=== PATIENT | male | born 1965 | race African-American/Black ===

== ENCOUNTER 2017-10-29 04:58 | Emergency (ER) | payer MEDICAID ==
[~2017-10-29] VITALS: Ht 167.6 cm; Wt 82.0 kg
[~2017-10-29 04:58] MED LIST: EMTR1TAB11 PO; FURO80TA3 PO; LISI-604 PO; OXYC30TA89 PO; SPIR25TA4 PO; TIVICAY PO
[2017-10-29 07:53] VITALS: BP 120/68
== END 2017-10-29 07:54 | disposition home or self-care (01) ==
LOC: ER 04:58
DX: B34.9 Viral infection, unspecified (principal); I50.9 Heart failure, unspecified; F12.10 Cannabis abuse, uncomplicated; F14.10 Cocaine abuse, uncomplicated; F15.10 Other stimulant abuse, uncomplicated; F17.210 Nicotine dependence, cigarettes, uncomplicated
CPT/HCPCS: 71045; 87070; 87430; 99285; 99406

== ENCOUNTER 2018-02-18 19:44 | Emergency (ER) | payer MEDICAID ==
[~2018-02-18] VITALS: Ht 167.6 cm; Wt 76.5 kg
[~2018-02-18 19:44] MED LIST changes: -SPIR25TA4 PO; +SPIR25TA6 PO
[2018-02-18 22:09] LABS: BASOPHILS % 1.1 % (0.0-2.0); CHLORIDE 101 mEq/L (98-107); EOSINOPHILS % 0.3 % (0.0-5.0); HEMATOCRIT. 48.1 % (42.0-52.0); HEMOGLOBIN. 15.7 g/dL (14.0-18.0); LYMPHOCYTES % 33.9 % (20.0-50.0); MEAN CORPUSCULAR HEMOGLOBIN 27.1 pg (28.0-32.0); MEAN CORPUSCULAR VOLUME 83.3 fL (80.0-94.0); MEAN PLATELET VOLUME 9.3 fl (7.4-10.4); MONOCYTES % 12.8 % (2.0-8.0); NEUTROPHILS % 51.9 % (40.0-76.0); PLATELET 160 x1000/uL (130-400); RED BLOOD CELL COUNT 5.77 mill/uL (4.7-6.1)
[2018-02-18 22:11] LABS: PARTIAL THROMBOPLASTIN TIME 26.4 sec (23.4-31.0); PROTHROMBIN TIME 10.4 sec (9.4-11.6)
[2018-02-18] MEDS ORDERED: SODIUM CHLORIDE 0.9% 1,000 ML IV ONE (23:07)
[2018-02-19 01:30] VITALS: BP 107/70
== END 2018-02-19 01:33 | disposition left against medical advice (07) ==
LOC: ER 19:44 → CANBEDREQ 02-19 01:59
DX: R19.7 Diarrhea, unspecified (principal); N28.9 Disorder of kidney and ureter, unspecified; R73.9 Hyperglycemia, unspecified; F15.10 Other stimulant abuse, uncomplicated; F17.210 Nicotine dependence, cigarettes, uncomplicated; Z79.899 Other long term (current) drug therapy
CPT/HCPCS: 36415; 71045; 80053; 83690; 84484; 85025; 85610; 85730; 93005; 96360; 96361; 99285; J7030; Z7610

== ENCOUNTER 2019-05-22 02:00 | Emergency (ER) | payer MEDICAID ==
[~2019-05-22] VITALS: Ht 170.2 cm; Wt 91.0 kg
[2019-05-22] MEDS ORDERED: MORPHINE SULFATE 4 MG/ML CPJ (NOT FOR IM USE) IV ONE (03:30)
[2019-05-22] MEDS ORDERED: ONDANSETRON HCL 4MG/2ML INJ IV ONE (03:30)
[2019-05-22 03:31] LABS: CLARITY URINE CLOUDY (CLEAR); COLOR URINE YELLOW (YELLOW); KETONES URINE NEGATIVE (NEGATIVE); LEUKOCYTE ESTERASE URINE 3+ (NEGATIVE); NITRITE URINE POSITIVE (NEGATIVE); OCCULT BLOOD URINE 2+ (NEGATIVE); PROTEIN URINE 2+ (NEGATIVE); SPECIFIC GRAVITY URINE 1.013 (1.005-1.030)
[2019-05-22 03:48] LABS: *AMPHETAMINES SCREEN URINE PRESUMTIVE POSITIVE (NEGATIVE)
[2019-05-22 03:49] LABS: *BARBITURATES SCREEN URINE NEGATIVE (NEGATIVE); *BENZODIAZEPINES SCREEN URINE NEGATIVE (NEGATIVE); *COCAINE SCREEN URINE NEGATIVE (NEGATIVE); METHADONE URINE SCREEN NEGATIVE (NEGATIVE); OPIATES URINE SCREEN NEGATIVE (NEGATIVE)
[2019-05-22 03:50] LABS: CANNABINOID URINE SCREEN NEGATIVE (NEGATIVE); PHENCYCLIDINE URINE SCREEN NEGATIVE (NEGATIVE)
[2019-05-22 03:57] LABS: HEMATOCRIT. 37.1 % (42.0-52.0); HEMOGLOBIN. 12.1 g/dL (14.0-18.0); MEAN CORPUSCULAR HEMOGLOBIN 27.5 pg (28.0-32.0); MEAN CORPUSCULAR VOLUME 84.2 fL (80.0-94.0); MEAN PLATELET VOLUME 9.2 fl (7.4-10.4); PLATELET 109 x1000/uL (130-400); RED CELL DISTRIBUTION WIDTH 13.6 % (11.6-14.6)
[2019-05-22 04:03] LABS: CHLORIDE 105 mEq/L (98-107)
[2019-05-22 04:05] LABS: PROTHROMBIN TIME 10.3 sec (9.6-11.0)
[2019-05-22 04:07] LABS: ETHANOL BLOOD < 10 mg/dL
[2019-05-22 04:26] LABS: PLATELET ESTIMATE DECREASED
[2019-05-22] MEDS ORDERED: CEFTRIAXONE 1 G PREMIX 50 ML IV ONE (04:45)
[2019-05-22 05:15] VITALS: BP 115/76
== END 2019-05-22 07:00 | disposition home or self-care (01) ==
LOC: ER 02:29
DX: N39.0 Urinary tract infection, site not specified (principal)
CPT/HCPCS: 36415; 80053; 80305; 80320; 81003; 83690; 85025; 85610; 87077; 87086; 87186; 93005; 96365; 96375; 99284; J0696; J2270; J2405; Z7610; G0480

== ENCOUNTER 2019-07-09 15:24 | Inpatient (IN) | payer MEDICAID ==
[~2019-07-09] VITALS: Ht 167.6 cm; Wt 78.5 kg
[2019-07-09] MEDS ORDERED: FUROSEMIDE 40MG/4ML VIAL IV ONE (17:30)
[2019-07-09] MEDS ORDERED: ASPIRIN 81MG TABLET PO ONE (17:30)
[2019-07-09 17:44] LABS: HEMATOCRIT. 40.4 % (42.0-52.0); HEMOGLOBIN. 13.2 g/dL (14.0-18.0); MEAN CORPUSCULAR HEMOGLOBIN 27.5 pg (28.0-32.0); MEAN CORPUSCULAR VOLUME 83.7 fL (80.0-94.0); MEAN PLATELET VOLUME 9.1 fl (7.4-10.4); PLATELET 135 x1000/uL (130-400); RED BLOOD CELL COUNT 4.82 mill/uL (4.7-6.1); RED CELL DISTRIBUTION WIDTH 14.3 % (11.6-14.6)
[2019-07-09 17:51] LABS: PARTIAL THROMBOPLASTIN TIME 28.7 sec (23.4-31.0); PROTHROMBIN TIME 10.5 sec (9.6-11.0)
[2019-07-09 17:55] LABS: CHLORIDE 106 mEq/L (98-107)
[2019-07-09 17:59] LABS: ETHANOL BLOOD < 10 mg/dL
[2019-07-09 18:52] LABS: PLATELET ESTIMATE NORMAL
[2019-07-09 19:23] LABS: CLARITY URINE CLEAR (CLEAR); COLOR URINE YELLOW (YELLOW); KETONES URINE NEGATIVE (NEGATIVE); LEUKOCYTE ESTERASE URINE NEGATIVE (NEGATIVE); NITRITE URINE NEGATIVE (NEGATIVE); OCCULT BLOOD URINE NEGATIVE (NEGATIVE); PH URINE 7.5 (4.5-8.0); PROTEIN URINE NEGATIVE (NEGATIVE); SPECIFIC GRAVITY URINE 1.006 (1.005-1.030); UROBILINOGEN URINE 0.2 E.U./dL (0.2-1.0)
[2019-07-09 19:42] LABS: *AMPHETAMINES SCREEN URINE PRESUMTIVE POSITIVE (NEGATIVE); *BARBITURATES SCREEN URINE NEGATIVE (NEGATIVE)
[2019-07-09 19:43] LABS: *BENZODIAZEPINES SCREEN URINE NEGATIVE (NEGATIVE); *COCAINE SCREEN URINE NEGATIVE (NEGATIVE); METHADONE URINE SCREEN NEGATIVE (NEGATIVE); OPIATES URINE SCREEN NEGATIVE (NEGATIVE); PHENCYCLIDINE URINE SCREEN NEGATIVE (NEGATIVE)
[2019-07-09 19:44] LABS: CANNABINOID URINE SCREEN NEGATIVE (NEGATIVE)
[2019-07-09] MEDS ORDERED: NA PHOS,M-B/NA PHOS,DI-BA ENEMA 118ML PR PRN (21:30)
[2019-07-09] MEDS ORDERED: LORAZEPAM 2MG/ML CPJ IV PRN (21:30)
[2019-07-09] MEDS ORDERED: DOCUSATE SODIUM 100MG CAPSULE PO PRN (21:30)
[2019-07-09] MEDS ORDERED: HYDROCODONE/ACETAMINOPHEN 10/325MG TABLET PO PRN (21:30)
[2019-07-09] MEDS ORDERED: MAGNESIUM/ALUMINUM HYDROXIDE/SIMETHICONE 30ML UDC PO PRN (21:30)
[2019-07-09] MEDS ORDERED: ONDANSETRON HCL 4MG/2ML INJ IV PRN (21:30)
[2019-07-09] MEDS ORDERED: CLONIDINE 0.1MG TABLET PO PRN (21:30)
[2019-07-09] MEDS ORDERED: DIPHENHYDRAMINE 50MG/ML VIAL IV PRN (21:30)
[2019-07-09] MEDS ORDERED: ACETAMINOPHEN 325MG TABLET PO PRN (21:30)
[2019-07-09] MEDS ORDERED: IPRATROPIUM/ALBUTEROL 0.5-3(2.5)MG/3ML NEB NEB PRN (21:30)
[2019-07-09 21:49] LABS: CHLORIDE 104 mEq/L (98-107)
[2019-07-09 22:46] VITALS: BP 121/83
[2019-07-09 23:30] VITALS: BP 110/78
[2019-07-09] MEDS: METHYLPREDNISOLONE SOD SUCC 125 MG/2 ML VIAL IV SCH (23:35)
[2019-07-09] MEDS: LEVOFLOXACIN 500MG PREMIX 100 ML IV SCH (23:36)
[2019-07-09] MEDS: MORPHINE SULFATE 2 MG/ML CPJ (NOT FOR IM USE) IV PRN (23:49)
[2019-07-10] VITALS: BP 105/70
[2019-07-10] MEDS ORDERED: CARV6.2548 PO (01:05)
[2019-07-10] MEDS ORDERED: BUME2TAB7 PO (01:05)
[2019-07-10] MEDS ORDERED: ATOR10TA69 PO (01:05)
[2019-07-10 04:00] VITALS: BP 101/67
[2019-07-10] MEDS: METHYLPREDNISOLONE SOD SUCC 125 MG/2 ML VIAL IV SCH ×2 (04:31→09:50)
[2019-07-10 07:32] LABS: CHLORIDE 103 mEq/L (98-107)
[2019-07-10 07:38] LABS: HEMATOCRIT. 40.5 % (42.0-52.0); HEMOGLOBIN. 13.2 g/dL (14.0-18.0); MEAN CORPUSCULAR HEMOGLOBIN 27.4 pg (28.0-32.0); MEAN CORPUSCULAR VOLUME 84.4 fL (80.0-94.0); MEAN PLATELET VOLUME 9.9 fl (7.4-10.4); PLATELET 123 x1000/uL (130-400); RED CELL DISTRIBUTION WIDTH 14.6 % (11.6-14.6)
[2019-07-10 07:54] LABS: LDL CHOLESTEROL 55 mg/dL (5-100)
[2019-07-10 07:55] LABS: HDL CHOLESTEROL 56 mg/dL (40-59)
[2019-07-10 08:00] VITALS: BP 114/62
[2019-07-10] MEDS ORDERED: SPIRONOLACTONE 5MG/ML 1ML ORAL SYR(NEO) PO SCH (09:30)
[2019-07-10] MEDS ORDERED: CARVEDILOL 6.25 MG TABLET PO SCH (09:30)
[2019-07-10] MEDS ORDERED: MEDICATION NOT ON FORMULARY EA (Emtricitabine/Tenofovir (Truvada 200 Mg-300 Mg Tablet) 1 PO SCH (09:30)
[2019-07-10] MEDS ORDERED: TIVICAY 50 MG PO SCH (09:30)
[2019-07-10] MEDS: LISINOPRIL 20MG TABLET PO SCH (09:30)
[2019-07-10] MEDS: ATORVASTATIN CALCIUM 10MG TABLET PO SCH (09:51)
[2019-07-10] MEDS: FUROSEMIDE 40MG/4ML VIAL IV SCH (09:51)
[2019-07-10] MEDS: ASPIRIN 81MG EC TABLET PO SCH (09:51)
[2019-07-10] MEDS: NICOTINE 21MG PATCH TD SCH (09:52)
[2019-07-10] MEDS: ENOXAPARIN 40MG/0.4ML SYR SUBCUT SCH (09:53)
[2019-07-10] MEDS: MORPHINE SULFATE 2 MG/ML CPJ (NOT FOR IM USE) IV PRN ×2 (09:53→20:54)
[2019-07-10] MEDS: SPIRONOLACTONE 25MG TABLET PO SCH (11:25)
[2019-07-10 12:00] VITALS: BP 117/87
[2019-07-10] MEDS ORDERED: INFLUENZA VIRUS VACCINE(AFLURIA) 0.5ML SYR IM ONE (12:00)
[2019-07-10] MEDS ORDERED: PNEUMOCOCCAL 23-VAL P-SAC VAC 0.5 ML IM ONE (12:00)
[2019-07-10 12:24] LABS: PLATELET ESTIMATE SLIGHTLY DECREASED
[2019-07-10 16:00] VITALS: BP 121/82
[2019-07-10] MEDS ORDERED: AZITHROMYCIN 600 MG TABLET PO SCH (16:00)
[2019-07-10] MEDS: SULFAMETHOXAZOLE/TRIMETHOPRIM 800/160MG TABLET PO SCH (17:13)
[2019-07-10 20:00] VITALS: BP 131/76
[2019-07-10] MEDS: FLUTICASONE PROPIONATE 50MCG/SPRAY BOTTLE BOTHNSTRLS SCH (20:48)
[2019-07-10] MEDS: IPRATROPIUM/ALBUTEROL 0.5-3(2.5)MG/3ML NEB HHN SCH (21:13)
[2019-07-10] MEDS ORDERED: NITR1PAT59 TP (22:09)
[2019-07-10] MEDS: LEVOFLOXACIN 500MG PREMIX 100 ML IV SCH (23:40)
[2019-07-11] VITALS: BP 122/83
[2019-07-11] MEDS ORDERED: NITROGLYCERIN 0.4MG/HR PATCH TOP SCH
[2019-07-11] MEDS: IPRATROPIUM/ALBUTEROL 0.5-3(2.5)MG/3ML NEB HHN SCH ×4 (01:18→20:10)
[2019-07-11 04:00] VITALS: BP 108/58
[2019-07-11 07:06] LABS: BASOPHILS % 0.1 % (0.0-2.0); EOSINOPHILS % 0.1 % (0.0-5.0); HEMATOCRIT. 37.5 % (42.0-52.0); HEMOGLOBIN. 12.1 g/dL (14.0-18.0); LYMPHOCYTES % 34.6 % (20.0-50.0); MEAN CORPUSCULAR HEMOGLOBIN 27.2 pg (28.0-32.0); MEAN CORPUSCULAR VOLUME 84.5 fL (80.0-94.0); MONOCYTES % 14.5 % (2.0-8.0); NEUTROPHILS % 50.7 % (40.0-76.0); PLATELET 125 x1000/uL (130-400); RED BLOOD CELL COUNT 4.44 mill/uL (4.7-6.1); RED CELL DISTRIBUTION WIDTH 14.1 % (11.6-14.6)
[2019-07-11 07:33] LABS: CHLORIDE 103 mEq/L (98-107)
[2019-07-11 08:00] VITALS: BP 100/69
[2019-07-11] MEDS: LISINOPRIL 20MG TABLET PO SCH (08:37)
[2019-07-11] MEDS: FLUTICASONE PROPIONATE 50MCG/SPRAY BOTTLE BOTHNSTRLS SCH ×2 (08:45→21:03)
[2019-07-11] MEDS: FUROSEMIDE 40MG/4ML VIAL IV SCH (08:47)
[2019-07-11] MEDS: NICOTINE 21MG PATCH TD SCH (08:47)
[2019-07-11] MEDS: ENOXAPARIN 40MG/0.4ML SYR SUBCUT SCH (08:47)
[2019-07-11] MEDS: ATORVASTATIN CALCIUM 10MG TABLET PO SCH (08:48)
[2019-07-11] MEDS: SULFAMETHOXAZOLE/TRIMETHOPRIM 800/160MG TABLET PO SCH (08:48)
[2019-07-11] MEDS: SPIRONOLACTONE 25MG TABLET PO SCH (08:48)
[2019-07-11] MEDS: ASPIRIN 81MG EC TABLET PO SCH (08:48)
[2019-07-11 12:00] VITALS: BP 123/68
[2019-07-11 16:00] VITALS: BP 100/65
[2019-07-11] MEDS: GUAIFENESIN 200MG/10ML SUGAR FREE UDC PO PRN (17:24)
[2019-07-11 20:00] VITALS: BP 99/41
[2019-07-11] MEDS ORDERED: LEVOFLOXACIN 500MG PREMIX 100 ML IV SCH (22:00)
[2019-07-12] VITALS: BP 100/66
[2019-07-12] MEDS: GUAIFENESIN 200MG/10ML SUGAR FREE UDC PO PRN (01:16)
[2019-07-12] MEDS: IPRATROPIUM/ALBUTEROL 0.5-3(2.5)MG/3ML NEB HHN SCH ×2 (01:52→09:14)
[2019-07-12 04:00] VITALS: BP 106/67
[2019-07-12 08:00] VITALS: BP 111/87
[2019-07-12] MEDS: ATORVASTATIN CALCIUM 10MG TABLET PO SCH (08:42)
[2019-07-12] MEDS: SULFAMETHOXAZOLE/TRIMETHOPRIM 800/160MG TABLET PO SCH (08:42)
[2019-07-12] MEDS: ASPIRIN 81MG EC TABLET PO SCH (08:42)
[2019-07-12] MEDS: SPIRONOLACTONE 25MG TABLET PO SCH (08:43)
[2019-07-12] MEDS: FLUTICASONE PROPIONATE 50MCG/SPRAY BOTTLE BOTHNSTRLS SCH (08:43)
[2019-07-12] MEDS: ENOXAPARIN 40MG/0.4ML SYR SUBCUT SCH (08:44)
[2019-07-12] MEDS: LISINOPRIL 20MG TABLET PO SCH (08:44)
[2019-07-12] MEDS: NICOTINE 21MG PATCH TD SCH (08:44)
[2019-07-12] MEDS: FUROSEMIDE 40MG/4ML VIAL IV SCH (08:45)
[2019-07-12 09:10] LABS: ABSOLUTE LYMPHOCYTES 1.1 x10E3/uL (0.7-3.1); ABSOLUTE MONOCYTES 0.2 x10E3/uL (0.1-0.9); ABSOLUTE NEUTROPHILS 1.4 x10E3/uL (1.4-7.0); BASOPHILS 0 % (Not Estab.); HEMATOCRIT 39.1 % (37.5-51.0); HEMOGLOBIN 12.4 g/dL (13.0-17.7); IMMATURE GRANULOCYTES 0 % (Not Estab.); LYMPHOCYTES 42 % (Not Estab.); MEAN CORPUSCULAR HEMOGLOBIN 27.7 pg (26.6-33.0); MEAN CORPUSCULAR HGB CONC. 31.7 g/dL (31.5-35.7); MEAN CORPUSCULAR VOLUME 87 fL (79-97); MONOCYTES 6 % (Not Estab.); NEUTROPHILS 51 % (Not Estab.); PLATELETS 134 x10E3/uL (150-450); RBC 4.48 x10E6/uL (4.14-5.80); RED CELL DISTRIBUTION WIDTH 14.5 % (12.3-15.4); WBC 2.7 x10E3/uL (3.4-10.8)
[2019-07-12 12:00] VITALS: BP 118/86
[2019-07-12 13:10] LABS: % CD 3 POS. LYMPHOCYTES 73.5 % (57.5-86.2); % CD 4 POS. LYMPHOCYTES 6.1 % (30.8-58.5); ABSOLUTE CD 3 809 /uL (622-2402); ABSOLUTE CD 4 HELPER 67 /uL (359-1519); ABSOLUTE CD 8 SUPPRESSOR 726 /uL (109-897); CD4/CD8 RATIO 0.09 (0.92-3.72)
[2019-07-12 14:08] VITALS: BP 118/86
== END 2019-07-12 14:29 | disposition home or self-care (01) | DRG 133 ==
LOC: ER 15:24 → 8WST 20:07 → EDBEDREQTM 20:13 → EDBEDREQ 20:13 → ENRESERV 20:46
PROVIDERS: ADMIT Internal Medicine; ATTEND Internal Medicine
DX: J96.00 Acute respiratory failure, unspecified whether with hypoxia or hypercapnia (principal); I50.23 Acute on chronic systolic (congestive) heart failure; E87.2 Acidosis; E46 Unspecified protein-calorie malnutrition; D69.6 Thrombocytopenia, unspecified; G62.9 Polyneuropathy, unspecified; I27.21 Secondary pulmonary arterial hypertension; R65.10 Systemic inflammatory response syndrome (SIRS) of non-infectious origin without acute organ dysfunction; I11.0 Hypertensive heart disease with heart failure; J44.9 Chronic obstructive pulmonary disease, unspecified; F15.10 Other stimulant abuse, uncomplicated; B19.20 Unspecified viral hepatitis C without hepatic coma; D72.819 Decreased white blood cell count, unspecified; F17.210 Nicotine dependence, cigarettes, uncomplicated; I42.9 Cardiomyopathy, unspecified; J00 Acute nasopharyngitis [common cold]; Z82.49 Family history of ischemic heart disease and other diseases of the circulatory system; Z86.73 Personal history of transient ischemic attack (TIA), and cerebral infarction without residual deficits; Z91.19 Patient's noncompliance with other medical treatment and regimen; Z71.6 Tobacco abuse counseling; Z71.51 Drug abuse counseling and surveillance of drug abuser; Z68.27 Body mass index [BMI] 27.0-27.9, adult
CPT/HCPCS: 36415; 71045; 80048; 80061; 80305; 80320; 81003; 83605; 83735; 83880; 84439; 84443; 84484; 86359; 86360; 87804; 90686; 90732; 93005; 93306; 94640; 97162; 99285; J1650; J1940; J1956; J2270; J2930; J7620; G0480

== ENCOUNTER 2019-12-13 09:54 | Emergency (ER) | payer MEDICAID ==
[~2019-12-13] VITALS: Ht 167.6 cm; Wt 70.3 kg
[~2019-12-13 09:54] MED LIST changes: +ATOR10TA69 PO; +BUME2TAB7 PO; +CARV6.2548 PO; -EMTR1TAB11 PO; +NITR1PAT59 TP; -TIVICAY PO
[2019-12-13 10:00] VITALS: BP 140/78
[2019-12-13 11:06] LABS: CLARITY URINE CLOUDY (CLEAR); COLOR URINE DARK YELLOW (YELLOW); KETONES URINE TRACE (NEGATIVE); LEUKOCYTE ESTERASE URINE 1+ (NEGATIVE); NITRITE URINE NEGATIVE (NEGATIVE); OCCULT BLOOD URINE TRACE (NEGATIVE); PH URINE 5.5 (4.5-8.0); PROTEIN URINE 1+ (NEGATIVE); SPECIFIC GRAVITY URINE 1.027 (1.005-1.030)
[2019-12-13] MEDS ORDERED: LIDOCAINE HCL 1% 20ML VIAL (Pyxis) INJ INFIL ONE (11:15)
[2019-12-13] MEDS ORDERED: CEFTRIAXONE SODIUM 1 G/VIAL IM ONE (11:15)
== END 2019-12-13 12:04 | disposition home or self-care (01) ==
LOC: ER 09:54
DX: N39.0 Urinary tract infection, site not specified (principal); I11.0 Hypertensive heart disease with heart failure; I50.9 Heart failure, unspecified; J44.9 Chronic obstructive pulmonary disease, unspecified; Z79.899 Other long term (current) drug therapy; Z20.828 Contact with and (suspected) exposure to other viral communicable diseases
CPT/HCPCS: 74176; 81003; 87086; 87635; 96372; 99284; J0696; J3490

== ENCOUNTER 2020-09-18 03:54 | Inpatient (IN) | payer MEDICAID ==
[~2020-09-18] VITALS: Ht 167.6 cm; Wt 78.5 kg
[~2020-09-18 03:54] MED LIST changes: +OXYC-582 PO; -OXYC30TA89 PO
[2020-09-18] MEDS ORDERED: ASPIRIN 81MG TABLET PO ONE (04:15)
[2020-09-18] MEDS: NITROGLYCERIN 0.4MG TABLET SL SL PRN (04:31)
[2020-09-18 04:51] LABS: BASOPHILS % 1.1 % (0.0-2.0); EOSINOPHILS % 0.6 % (0.0-5.0); HEMATOCRIT. 36.6 % (42.0-52.0); HEMOGLOBIN. 11.9 g/dL (14.0-18.0); LYMPHOCYTES % 53.9 % (20.0-50.0); MEAN CORPUSCULAR HEMOGLOBIN 27.7 pg (28.0-32.0); MEAN CORPUSCULAR VOLUME 85.1 fL (80.0-94.0); MONOCYTES % 12.8 % (2.0-8.0); NEUTROPHILS % 31.6 % (40.0-76.0); PLATELET 104 x1000/uL (130-400); RED CELL DISTRIBUTION WIDTH 14.9 % (11.6-14.6)
[2020-09-18 05:10] LABS: CHLORIDE 106 mEq/L (98-107)
[2020-09-18 05:20] LABS: ETHANOL BLOOD < 10 mg/dL
[2020-09-18] MEDS ORDERED: AZITHROMYCIN 500 MG in DEXT 5% WATER 250 ML IV ONE (06:30)
[2020-09-18] MEDS ORDERED: CEFTRIAXONE 1 G PREMIX 50 ML IV ONE (06:30)
[2020-09-18] MEDS ORDERED: FUROSEMIDE 20MG/2ML VIAL IVP ONE (06:30)
[2020-09-18 10:47] LABS: CLARITY URINE CLEAR (CLEAR); COLOR URINE YELLOW (YELLOW); KETONES URINE NEGATIVE (NEGATIVE); LEUKOCYTE ESTERASE URINE NEGATIVE (NEGATIVE); NITRITE URINE NEGATIVE (NEGATIVE); OCCULT BLOOD URINE NEGATIVE (NEGATIVE); PH URINE 7.5 (4.5-8.0); PROTEIN URINE NEGATIVE (NEGATIVE); SPECIFIC GRAVITY URINE 1.008 (1.005-1.030)
[2020-09-18 11:06] LABS: *AMPHETAMINES SCREEN URINE PRESUMTIVE POSITIVE (NEGATIVE); *BARBITURATES SCREEN URINE NEGATIVE (NEGATIVE); *BENZODIAZEPINES SCREEN URINE NEGATIVE (NEGATIVE); *COCAINE SCREEN URINE NEGATIVE (NEGATIVE); METHADONE URINE SCREEN NEGATIVE (NEGATIVE); OPIATES URINE SCREEN NEGATIVE (NEGATIVE)
[2020-09-18 11:07] LABS: CANNABINOID URINE SCREEN NEGATIVE (NEGATIVE); PHENCYCLIDINE URINE SCREEN NEGATIVE (NEGATIVE)
[2020-09-18] MEDS ORDERED: MORPHINE SULFATE 2 MG/ML CPJ (NOT FOR IM USE) IV PRN (12:00)
[2020-09-18] MEDS: ENOXAPARIN 40MG/0.4ML SYR SUBCUT SCH (18:00)
[2020-09-18] MEDS ORDERED: ONDANSETRON HCL 4MG/2ML INJ IV PRN (18:00)
[2020-09-18] MEDS ORDERED: ACETAMINOPHEN 325MG TABLET PO PRN (18:00)
[2020-09-18] MEDS ORDERED: IPRATROPIUM/ALBUTEROL 0.5-3(2.5)MG/3ML NEB NEB PRN (18:00)
[2020-09-18] MEDS: FUROSEMIDE 40MG TABLET PO SCH ×2 (18:32→23:00)
[2020-09-18] MEDS: CARVEDILOL 6.25 MG TABLET PO SCH (20:48)
[2020-09-19] MEDS: NITROGLYCERIN 0.4MG TABLET SL SL PRN ×2 (00:12→10:40)
[2020-09-19 01:00] LABS: CREATINE KINASE 77 IU/L (39-308)
[2020-09-19 01:01] LABS: CREATINE KINASE MB FRACTION 1.6 ng/mL (0.5-3.6)
[2020-09-19 06:50] LABS: CHLORIDE 101 mEq/L (98-107)
[2020-09-19 06:56] LABS: CREATINE KINASE 81 IU/L (39-308); HEMATOCRIT. 38.6 % (42.0-52.0); HEMOGLOBIN. 12.8 g/dL (14.0-18.0); MEAN CORPUSCULAR HEMOGLOBIN 27.8 pg (28.0-32.0); MEAN CORPUSCULAR VOLUME 83.9 fL (80.0-94.0); MEAN PLATELET VOLUME 9.3 fl (7.4-10.4); PLATELET 134 x1000/uL (130-400); RED CELL DISTRIBUTION WIDTH 14.3 % (11.6-14.6)
[2020-09-19 06:58] LABS: CREATINE KINASE MB FRACTION 1.7 ng/mL (0.5-3.6)
[2020-09-19 08:00] VITALS: BP 117/82
[2020-09-19] MEDS ORDERED: SULF-288 PO (09:49)
[2020-09-19] MEDS ORDERED: ERGO500013 PO (09:51)
[2020-09-19] MEDS ORDERED: ASPI-1497 PO (09:51)
[2020-09-19] MEDS: SPIRONOLACTONE 25MG TABLET PO SCH (10:26)
[2020-09-19] MEDS: LISINOPRIL 20MG TABLET PO SCH (10:27)
[2020-09-19] MEDS: CARVEDILOL 6.25 MG TABLET PO SCH ×2 (10:28→21:00)
[2020-09-19] MEDS: ASPIRIN 81MG EC TABLET PO SCH (10:28)
[2020-09-19 10:35] LABS: PLATELET ESTIMATE NORMAL
[2020-09-19 10:59] VITALS: BP 117/82
[2020-09-19 12:00] VITALS: BP 120/68
[2020-09-19] MEDS ORDERED: *PATIENT'S OWN MEDICATION STORAGE XX SCH (13:00)
[2020-09-19 16:00] VITALS: BP 101/56
[2020-09-19] MEDS: FUROSEMIDE 40MG TABLET PO SCH (17:12)
[2020-09-19] MEDS: ENOXAPARIN 40MG/0.4ML SYR SUBCUT SCH (17:14)
[2020-09-19] MEDS: FUROSEMIDE 40MG/4ML VIAL IVP SCH ×2 (18:00→20:17)
[2020-09-19] MEDS ORDERED: CEFTRIAXONE 1 G PREMIX 50 ML IV SCH (18:00)
[2020-09-19] MEDS ORDERED: PNEUMOCOCCAL 23-VAL P-SAC VAC 0.5 ML IM ONE (19:00)
[2020-09-19] MEDS ORDERED: INFLUENZA VACCINE 05/PF 0.5 ML VIAL IM ONE (19:00)
[2020-09-19] MEDS: AZITHROMYCIN 500 MG in DEXT 5% WATER 250 ML IV SCH (19:54)
[2020-09-19 20:00] VITALS: BP 101/70
[2020-09-19] MEDS: CEFTRIAXONE 1,000 MG in DEXTROSE 5% WATER 50 ML IV SCH (22:00)
[2020-09-20] VITALS: BP 104/62
[2020-09-20 04:00] VITALS: BP 112/77
[2020-09-20 06:46] LABS: HEMATOCRIT. 41.5 % (42.0-52.0); HEMOGLOBIN. 13.9 g/dL (14.0-18.0); MEAN CORPUSCULAR HEMOGLOBIN 28.2 pg (28.0-32.0); MEAN CORPUSCULAR VOLUME 84.2 fL (80.0-94.0); MEAN PLATELET VOLUME 9.1 fl (7.4-10.4); PLATELET 137 x1000/uL (130-400); RED BLOOD CELL COUNT 4.94 mill/uL (4.7-6.1); RED CELL DISTRIBUTION WIDTH 14.5 % (11.6-14.6)
[2020-09-20 07:13] LABS: CHLORIDE 102 mEq/L (98-107)
[2020-09-20 08:00] VITALS: BP 120/81
[2020-09-20] MEDS: SPIRONOLACTONE 25MG TABLET PO SCH (08:52)
[2020-09-20] MEDS: CARVEDILOL 6.25 MG TABLET PO SCH ×2 (08:52→20:12)
[2020-09-20] MEDS: LISINOPRIL 20MG TABLET PO SCH (08:52)
[2020-09-20] MEDS: ASPIRIN 81MG EC TABLET PO SCH (08:52)
[2020-09-20] MEDS: FUROSEMIDE 40MG/4ML VIAL IVP SCH ×2 (08:52→18:12)
[2020-09-20] MEDS ORDERED: MORPHINE SULFATE 2 MG/ML CPJ (NOT FOR IM USE) IV PRN (11:00)
[2020-09-20 12:00] VITALS: BP 115/86
[2020-09-20 16:00] VITALS: BP 134/48
[2020-09-20 16:34] LABS: PLATELET ESTIMATE NORMAL
[2020-09-20] MEDS: ENOXAPARIN 40MG/0.4ML SYR SUBCUT SCH (18:12)
[2020-09-20] MEDS: AZITHROMYCIN 500 MG in DEXT 5% WATER 250 ML IV SCH ×2 (19:30→20:14)
[2020-09-20 20:00] VITALS: BP 135/86
[2020-09-20] MEDS: CEFTRIAXONE 1,000 MG in DEXTROSE 5% WATER 50 ML IV SCH (20:12)
[2020-09-21] VITALS: BP 108/62
[2020-09-21 04:00] VITALS: BP 125/78
[2020-09-21 04:31] LABS: CHLORIDE 104 mEq/L (98-107)
[2020-09-21 04:50] LABS: HEMATOCRIT. 40.6 % (42.0-52.0); HEMOGLOBIN. 13.3 g/dL (14.0-18.0); MEAN CORPUSCULAR HEMOGLOBIN 27.7 pg (28.0-32.0); MEAN CORPUSCULAR VOLUME 84.3 fL (80.0-94.0); MEAN PLATELET VOLUME 9.5 fl (7.4-10.4); PLATELET 145 x1000/uL (130-400); RED BLOOD CELL COUNT 4.82 mill/uL (4.7-6.1); RED CELL DISTRIBUTION WIDTH 14.7 % (11.6-14.6)
[2020-09-21 08:00] VITALS: BP 124/83
[2020-09-21] MEDS: SPIRONOLACTONE 25MG TABLET PO SCH (09:08)
[2020-09-21] MEDS: FUROSEMIDE 40MG/4ML VIAL IVP SCH (09:08)
[2020-09-21] MEDS: LISINOPRIL 20MG TABLET PO SCH (09:08)
[2020-09-21] MEDS: ASPIRIN 81MG EC TABLET PO SCH (09:08)
[2020-09-21] MEDS: CARVEDILOL 6.25 MG TABLET PO SCH (09:09)
[2020-09-21 10:00] VITALS: BP 111/70
[2020-09-21 12:00] VITALS: BP 143/78
[2020-09-21] MEDS ORDERED: ASPI-1406 PO (12:34)
[2020-09-21] MEDS ORDERED: SPIR25TA PO (12:34)
[2020-09-21] MEDS ORDERED: FURO-151 MT (12:34)
[2020-09-21] MEDS ORDERED: COR6 PO (12:34)
[2020-09-21 14:14] VITALS: BP 98/69
[2020-09-21 18:08] LABS: PLATELET ESTIMATE NORMAL
== END 2020-09-21 15:10 | disposition home or self-care (01) | DRG 139 ==
LOC: ER 03:54 → 5EST 06:34 → EDBEDREQTM 06:36 → EDBEDREQ 06:36 → ENRESERV 09-19 07:29 → 5WST 09-19 12:19 → 5EST 09-19 14:43
PROVIDERS: ADMIT Internal Medicine; ATTEND Internal Medicine
DX: J18.9 Pneumonia, unspecified organism (principal); I11.0 Hypertensive heart disease with heart failure; J44.0 Chronic obstructive pulmonary disease with (acute) lower respiratory infection; I50.23 Acute on chronic systolic (congestive) heart failure; R07.9 Chest pain, unspecified; I42.0 Dilated cardiomyopathy; E78.5 Hyperlipidemia, unspecified; F64.9 Gender identity disorder, unspecified; D69.59 Other secondary thrombocytopenia; F17.200 Nicotine dependence, unspecified, uncomplicated; Z79.82 Long term (current) use of aspirin; Z79.899 Other long term (current) drug therapy; Z82.49 Family history of ischemic heart disease and other diseases of the circulatory system; Z21 Asymptomatic human immunodeficiency virus [HIV] infection status
CPT/HCPCS: 36415; 71045; 80048; 80053; 80305; 80320; 81003; 82550; 82553; 83605; 83880; 84484; 85025; 90686; 90732; 93005; 93306; 93970; 99291; C1893; J0456; J0696; J1650; J1940; J2270; J7040; J7060; G0480

== ENCOUNTER 2020-10-19 15:51 | Emergency (ER) | payer MEDICAID ==
[~2020-10-19 15:51] MED LIST changes: +ASPI-1406 PO; +ASPI-1497 PO; -BUME2TAB7 PO; +COR6 PO; +ERGO500013 PO; +FURO-151 MT; -NITR1PAT59 TP; -OXYC-582 PO; +SPIR25TA PO; -SPIR25TA6 PO; +SULF-288 PO
== END 2020-10-19 16:25 | disposition left against medical advice (07) ==
LOC: ER 15:51
DX: Z53.21 Procedure and treatment not carried out due to patient leaving prior to being seen by health care provider (principal)

== ENCOUNTER 2020-10-19 19:18 | Inpatient (IN) | payer MEDICAID ==
[~2020-10-19] VITALS: Ht 167.6 cm; Wt 82.1 kg
[~2020-10-19 19:18] MED LIST changes: -LISI-604 PO; +LISI20TA31 PO
[2020-10-19 21:01] LABS: HEMATOCRIT. 40.1 % (42.0-52.0); HEMOGLOBIN. 12.8 g/dL (14.0-18.0); MEAN CORPUSCULAR HEMOGLOBIN 26.9 pg (28.0-32.0); MEAN CORPUSCULAR VOLUME 84.4 fL (80.0-94.0); MEAN PLATELET VOLUME 8.7 fl (7.4-10.4); PLATELET 134 x1000/uL (130-400); RED BLOOD CELL COUNT 4.75 mill/uL (4.7-6.1); RED CELL DISTRIBUTION WIDTH 14.3 % (11.6-14.6)
[2020-10-19 21:09] LABS: CHLORIDE 107 mEq/L (98-107)
[2020-10-19 21:16] LABS: PLATELET ESTIMATE NORMAL
[2020-10-19] MEDS ORDERED: FUROSEMIDE 40MG TABLET PO ONE (22:30)
[2020-10-19] MEDS ORDERED: ASPIRIN 81MG TABLET PO ONE (22:30)
[2020-10-20] MEDS ORDERED: ONDANSETRON HCL 4MG/2ML INJ IV PRN (08:30)
[2020-10-20] MEDS ORDERED: HYDRALAZINE 20MG/ML VIAL IV PRN (08:30)
[2020-10-20] MEDS ORDERED: MORPHINE SULFATE 2 MG/ML CPJ (NOT FOR IM USE) IV PRN (08:30)
[2020-10-20] MEDS ORDERED: DOCUSATE SODIUM 100MG CAPSULE PO PRN (08:30)
[2020-10-20] MEDS ORDERED: LORAZEPAM 2MG/ML CPJ IV PRN (08:30)
[2020-10-20] MEDS ORDERED: CLONIDINE 0.1MG TABLET PO PRN (08:30)
[2020-10-20] MEDS ORDERED: MAGNESIUM/ALUMINUM HYDROXIDE/SIMETHICONE 30ML UDC PO PRN (08:30)
[2020-10-20] MEDS ORDERED: IPRATROPIUM/ALBUTEROL 0.5-3(2.5)MG/3ML NEB HHN PRN (08:30)
[2020-10-20] MEDS ORDERED: GUAIFENESIN 200MG/10ML SUGAR FREE UDC PO PRN (08:30)
[2020-10-20 08:35] VITALS: BP 121/80
[2020-10-20] MEDS: FUROSEMIDE 40MG/4ML VIAL IVP SCH (09:33)
[2020-10-20] MEDS: ENOXAPARIN 40MG/0.4ML SYR SUBCUT SCH (09:33)
[2020-10-20 12:00] VITALS: BP 110/70
[2020-10-20] MEDS: SODIUM CHLORIDE 0.9% INJ 3ML FLUSH IVF SCH ×2 (14:00→21:49)
[2020-10-20 15:33] LABS: CREATINE KINASE 77 IU/L (39-308)
[2020-10-20 15:34] LABS: CREATINE KINASE MB FRACTION 1.5 ng/mL (0.5-3.6)
[2020-10-20 16:00] VITALS: BP 110/70
[2020-10-20 18:56] LABS: CLARITY URINE CLEAR (CLEAR); COLOR URINE YELLOW (YELLOW); KETONES URINE NEGATIVE (NEGATIVE); LEUKOCYTE ESTERASE URINE NEGATIVE (NEGATIVE); NITRITE URINE NEGATIVE (NEGATIVE); OCCULT BLOOD URINE NEGATIVE (NEGATIVE); PROTEIN URINE 2+ (NEGATIVE); SPECIFIC GRAVITY URINE 1.019 (1.005-1.030)
[2020-10-20 19:05] LABS: *AMPHETAMINES SCREEN URINE PRESUMTIVE POSITIVE (NEGATIVE); *BARBITURATES SCREEN URINE NEGATIVE (NEGATIVE); *BENZODIAZEPINES SCREEN URINE NEGATIVE (NEGATIVE); *COCAINE SCREEN URINE NEGATIVE (NEGATIVE); CANNABINOID URINE SCREEN NEGATIVE (NEGATIVE); METHADONE URINE SCREEN NEGATIVE (NEGATIVE); OPIATES URINE SCREEN NEGATIVE (NEGATIVE); PHENCYCLIDINE URINE SCREEN NEGATIVE (NEGATIVE)
[2020-10-20] MEDS: HYDROCODONE/ACETAMINOPHEN 5/325MG TABLET PO PRN (19:14)
[2020-10-20 19:39] VITALS: BP 103/77
[2020-10-21] VITALS (7 sets, daily range): BP systolic 103–148; BP diastolic 62–90
[2020-10-21 00:19] LABS: CREATINE KINASE 74 IU/L (39-308); CREATINE KINASE MB FRACTION 1.3 ng/mL (0.5-3.6)
[2020-10-21] MEDS: HYDROCODONE/ACETAMINOPHEN 5/325MG TABLET PO PRN (05:53)
[2020-10-21] MEDS: SODIUM CHLORIDE 0.9% INJ 3ML FLUSH IVF SCH ×3 (05:54→21:34)
[2020-10-21 06:23] LABS: CHLORIDE 102 mEq/L (98-107)
[2020-10-21 06:29] LABS: HEMOGLOBIN. 13.4 g/dL (14.0-18.0); MEAN CORPUSCULAR HEMOGLOBIN 26.9 pg (28.0-32.0); MEAN CORPUSCULAR VOLUME 84.2 fL (80.0-94.0); MEAN PLATELET VOLUME 8.5 fl (7.4-10.4); PLATELET 135 x1000/uL (130-400); RED BLOOD CELL COUNT 4.99 mill/uL (4.7-6.1); RED CELL DISTRIBUTION WIDTH 14.3 % (11.6-14.6)
[2020-10-21] MEDS: FUROSEMIDE 40MG/4ML VIAL IVP SCH (09:15)
[2020-10-21] MEDS: ENOXAPARIN 40MG/0.4ML SYR SUBCUT SCH (09:15)
[2020-10-21] MEDS: DIPHENHYDRAMINE 50MG/ML VIAL IV PRN ×2 (09:16→22:32)
[2020-10-21 10:16] LABS: PLATELET ESTIMATE NORMAL
[2020-10-22] VITALS: BP 118/72
[2020-10-22 04:00] VITALS: BP 116/67
[2020-10-22] MEDS: ACETAMINOPHEN 325MG TABLET PO PRN ×2 (04:55→11:31)
[2020-10-22] MEDS: SODIUM CHLORIDE 0.9% INJ 3ML FLUSH IVF SCH ×3 (06:38→21:02)
[2020-10-22 08:00] VITALS: BP 106/63
[2020-10-22] MEDS: ENOXAPARIN 40MG/0.4ML SYR SUBCUT SCH (09:40)
[2020-10-22] MEDS: FUROSEMIDE 40MG/4ML VIAL IVP SCH ×2 (09:40→17:14)
[2020-10-22] MEDS: ASPIRIN 81MG TABLET PO SCH (11:32)
[2020-10-22] MEDS: LISINOPRIL 5MG TABLET PO SCH (11:32)
[2020-10-22 12:00] VITALS: BP 114/81
[2020-10-22 16:00] VITALS: BP 117/55
[2020-10-22 20:00] VITALS: BP 114/85
[2020-10-22] MEDS ORDERED: ATORVASTATIN CALCIUM 20MG TABLET PO SCH (21:00)
[2020-10-23] VITALS: BP 92/59
[2020-10-23 04:00] VITALS: BP 100/64
[2020-10-23] MEDS: FUROSEMIDE 40MG/4ML VIAL IVP SCH (06:15)
[2020-10-23] MEDS: SODIUM CHLORIDE 0.9% INJ 3ML FLUSH IVF SCH ×2 (06:15→14:22)
[2020-10-23 07:14] LABS: CHLORIDE 98 mEq/L (98-107)
[2020-10-23 07:17] LABS: HEMATOCRIT. 40.8 % (42.0-52.0); HEMOGLOBIN. 13.2 g/dL (14.0-18.0); MEAN CORPUSCULAR HEMOGLOBIN 26.9 pg (28.0-32.0); MEAN CORPUSCULAR VOLUME 83.5 fL (80.0-94.0); MEAN PLATELET VOLUME 9.4 fl (7.4-10.4); PLATELET 144 x1000/uL (130-400); RED BLOOD CELL COUNT 4.89 mill/uL (4.7-6.1)
[2020-10-23 08:00] VITALS: BP 121/73
[2020-10-23] MEDS: LISINOPRIL 5MG TABLET PO SCH (09:55)
[2020-10-23] MEDS: ASPIRIN 81MG TABLET PO SCH (09:55)
[2020-10-23] MEDS: ENOXAPARIN 40MG/0.4ML SYR SUBCUT SCH (09:55)
[2020-10-23 12:00] VITALS: BP 119/67
[2020-10-23 12:41] LABS: PLATELET ESTIMATE NORMAL
[2020-10-23 14:33] VITALS: BP 102/72
== END 2020-10-23 15:20 | disposition home or self-care (01) | DRG 194 ==
LOC: ER 19:18 → 8WST 23:16 → EDBEDREQTM 23:34 → EDBEDREQ 23:34 → ENRESERV 10-20 07:44
PROVIDERS: ADMIT Internal Medicine; ATTEND Internal Medicine
DX: I11.0 Hypertensive heart disease with heart failure (principal); R65.11 Systemic inflammatory response syndrome (SIRS) of non-infectious origin with acute organ dysfunction; J96.00 Acute respiratory failure, unspecified whether with hypoxia or hypercapnia; B19.20 Unspecified viral hepatitis C without hepatic coma; D72.819 Decreased white blood cell count, unspecified; F15.10 Other stimulant abuse, uncomplicated; J44.9 Chronic obstructive pulmonary disease, unspecified; E78.5 Hyperlipidemia, unspecified; F17.210 Nicotine dependence, cigarettes, uncomplicated; I27.21 Secondary pulmonary arterial hypertension; I42.0 Dilated cardiomyopathy; R50.9 Fever, unspecified; I42.7 Cardiomyopathy due to drug and external agent; T50.905A Adverse effect of unspecified drugs, medicaments and biological substances, initial encounter; R07.9 Chest pain, unspecified; I45.4 Nonspecific intraventricular block; Z79.82 Long term (current) use of aspirin; Z79.899 Other long term (current) drug therapy; Z91.19 Patient's noncompliance with other medical treatment and regimen; Z79.2 Long term (current) use of antibiotics; Y92.89 Other specified places as the place of occurrence of the external cause; I50.33 Acute on chronic diastolic (congestive) heart failure; E44.0 Moderate protein-calorie malnutrition; Z68.29 Body mass index [BMI] 29.0-29.9, adult; R64 Cachexia; Z71.51 Drug abuse counseling and surveillance of drug abuser; Z21 Asymptomatic human immunodeficiency virus [HIV] infection status
CPT/HCPCS: 36415; 71045; 80048; 80053; 80061; 80305; 81003; 82550; 82553; 83880; 84484; 85025; 93005; 93970; 96372; 99291; A6261; J1200; J1650; J1940

== ENCOUNTER 2021-10-24 09:00 | Emergency (ER) | payer MEDICAID, OTHER ==
[~2021-10-24] VITALS: Ht 167.6 cm; Wt 80.0 kg
[~2021-10-24 09:00] MED LIST changes: +ERGO1250 PO; -ERGO500013 PO; +SULF-13 PO; -SULF-288 PO
[2021-10-24] MEDS ORDERED: HYDROCODONE/ACETAMINOPHEN 5/325MG TABLET PO STA (09:49)
[2021-10-24 09:53] LABS: BASOPHILS % 0.1 % (0.0-2.0); EOSINOPHILS % 0.1 % (0.0-5.0); HEMATOCRIT. 35.2 % (42.0-52.0); HEMOGLOBIN. 11.2 g/dL (14.0-18.0); LYMPHOCYTES % 45.8 % (20.0-50.0); MEAN CORPUSCULAR VOLUME 81.2 fL (80.0-94.0); MEAN PLATELET VOLUME 8.4 fl (7.4-10.4); PLATELET 169 x1000/uL (130-400); RED BLOOD CELL COUNT 4.33 mill/uL (4.7-6.1); RED CELL DISTRIBUTION WIDTH 14.4 % (11.6-14.6)
[2021-10-24 09:56] LABS: CHLORIDE 99 mEq/L (98-107)
[2021-10-24] MEDS ORDERED: NITROGLYCERIN 0.4MG TABLET SL SL PRN (10:00)
[2021-10-24] MEDS ORDERED: ASPIRIN 81MG TABLET PO ONE (10:00)
[2021-10-24] MEDS ORDERED: FUROSEMIDE 40MG/4ML VIAL IVP ONE (10:45)
[2021-10-24] MEDS ORDERED: ACETAMINOPHEN WITH CODEINE 300/30MG TABLET PO ONE (11:45)
[2021-10-24] MEDS ORDERED: ONDANSETRON HCL 4MG/2ML INJ IV ONE (11:45)
[2021-10-24 13:46] VITALS: BP 115/65
== END 2021-10-24 13:55 | disposition short-term general hospital (02) ==
LOC: ER 09:11
DX: I11.0 Hypertensive heart disease with heart failure (principal); I50.9 Heart failure, unspecified; J44.9 Chronic obstructive pulmonary disease, unspecified; E11.9 Type 2 diabetes mellitus without complications; F17.290 Nicotine dependence, other tobacco product, uncomplicated; Z79.899 Other long term (current) drug therapy; Z20.822 Contact with and (suspected) exposure to COVID-19
CPT/HCPCS: 36415; 71045; 80053; 83880; 84484; 85025; 87426; 93005; 96374; 96375; 99285; J1940; J2405

== ENCOUNTER 2021-11-08 21:27 | Emergency (ER) | payer OTHER ==
[~2021-11-08] VITALS: Ht 175.3 cm; Wt 84.0 kg
[2021-11-08] MEDS ORDERED: METHYLPREDNISOLONE SOD SUCC 125 MG/2 ML VIAL IV STA (22:35)
[2021-11-08] MEDS ORDERED: HYDROCODONE/ACETAMINOPHEN 5/325MG TABLET PO STA (22:35)
[2021-11-08] MEDS ORDERED: ALBUTEROL (0.083%) 2.5MG/3ML NEB HHN STA (22:35)
[2021-11-08] MEDS ORDERED: IPRATROPIUM BROMIDE (0.02%) 0.5MG/2.5ML NEB HHN STA (22:35)
[2021-11-08] MEDS ORDERED: ASPIRIN 81MG TABLET PO ONE (22:45)
[2021-11-08] MEDS ORDERED: SODIUM CHLORIDE 0.9% 1,000 ML IV ONE (22:45)
[2021-11-08 23:39] LABS: HEMATOCRIT. 31.5 % (42.0-52.0); HEMOGLOBIN. 10.5 g/dL (14.0-18.0); MEAN PLATELET VOLUME 8.1 fl (7.4-10.4); PLATELET 154 x1000/uL (130-400); RED BLOOD CELL COUNT 3.89 mill/uL (4.7-6.1)
[2021-11-08 23:50] LABS: CHLORIDE 104 mEq/L (98-107)
[2021-11-09 00:01] LABS: PLATELET ESTIMATE NORMAL
[2021-11-09] MEDS ORDERED: FUROSEMIDE 40MG/4ML VIAL IVP SCH (00:15)
[2021-11-09 02:00] VITALS: BP 104/65
== END 2021-11-09 02:20 | disposition short-term general hospital (02) ==
LOC: ER 21:27
DX: R07.89 Other chest pain (principal); J44.9 Chronic obstructive pulmonary disease, unspecified; D64.9 Anemia, unspecified; I11.0 Hypertensive heart disease with heart failure; I50.9 Heart failure, unspecified; E11.9 Type 2 diabetes mellitus without complications; F17.290 Nicotine dependence, other tobacco product, uncomplicated; Z79.899 Other long term (current) drug therapy
CPT/HCPCS: 36415; 71045; 80053; 83880; 84484; 85025; 85379; 94640; 96361; 96374; 96375; 99284; J1940; J2930; J7030; Z7610

== ENCOUNTER 2022-02-16 23:55 | Emergency (ER) | payer MEDICAID, OTHER ==
[~2022-02-16] VITALS: Ht 170.2 cm; Wt 82.0 kg
[2022-02-17 00:07] VITALS: BP 111/81
[2022-02-17] MEDS ORDERED: ASPIRIN 81MG TABLET PO ONE (01:45)
[2022-02-17 02:27] LABS: HEMATOCRIT. 38.7 % (42.0-52.0); HEMOGLOBIN. 12.5 g/dL (14.0-18.0); MEAN CORPUSCULAR HEMOGLOBIN 27.3 pg (28.0-32.0); MEAN CORPUSCULAR VOLUME 84.6 fL (80.0-94.0); PLATELET 116 x1000/uL (130-400); RED BLOOD CELL COUNT 4.58 mill/uL (4.7-6.1); RED CELL DISTRIBUTION WIDTH 15.1 % (11.6-14.6)
[2022-02-17 02:35] LABS: CHLORIDE 105 mEq/L (98-107)
[2022-02-17] MEDS ORDERED: FUROSEMIDE 40MG/4ML VIAL IVP NR (03:15)
[2022-02-17 05:04] LABS: PLATELET ESTIMATE SLIGHTLY DECREASED
== END 2022-02-17 05:31 | disposition short-term general hospital (02) ==
LOC: ER 23:55
DX: R07.89 Other chest pain (principal); I11.0 Hypertensive heart disease with heart failure; I50.9 Heart failure, unspecified; I49.3 Ventricular premature depolarization; Z20.822 Contact with and (suspected) exposure to COVID-19; I44.7 Left bundle-branch block, unspecified; I42.2 Other hypertrophic cardiomyopathy; J44.9 Chronic obstructive pulmonary disease, unspecified
CPT/HCPCS: 36415; 71045; 80053; 83880; 84484; 85025; 87426; 93005; 96374; 99285; C9803; J1940; Z7610

== ENCOUNTER 2023-06-10 01:41 | Emergency (ER) | payer MEDICAID, OTHER ==
[~2023-06-10] VITALS: Ht 167.6 cm; Wt 82.0 kg
[~2023-06-10 01:41] MED LIST changes: -ASPI-1497 PO; +BICT1TAB PO; -CARV6.2548 PO; +DAPA10TA PO; -FURO-151 MT; +FURO40TA5 PO; -FURO80TA3 PO; +IPRA3AMP9 NEB; -LISI20TA31 PO; +METO-411 PO; +NITR0.4T49 SL; +OXYC-582 PO; +POTA-205 PO; +SACU1TAB PO; -SULF-13 PO; +[UNRECOGNIZED DRUG - CODE] TP
[2023-06-10 01:48] VITALS: BP 124/71; PULSE 71; RESP 18; TEMP 98.8; O2SAT 97
[2023-06-10] MEDS ORDERED: HYDR28GE TP (02:17)
== END 2023-06-10 02:20 | disposition home or self-care (01) ==
LOC: ER 01:41
DX: Z53.21 Procedure and treatment not carried out due to patient leaving prior to being seen by health care provider (principal)
CPT/HCPCS: 99281